=== PATIENT | female | born 1985 | race American Indian/Alaskan Native ===

== ENCOUNTER 2018-04-27 22:20 | Emergency (ER) | payer OTHER ==
[~2018-04-27] VITALS: Ht 157.5 cm; Wt 56.7 kg
[~2018-04-27 22:20] MED LIST: CLARITIN10 MG PO; CYMBALTA30 MG PO; DILAUDID4 MG PO; DOCUSATE SODIU100 MG PO; GABAPENTIN100 MG PO; GENTIAN VIOLET TOP; HYDROCODON-ACE1 EAC6 PO; IBUPROFEN600 MG PO; IBUPROFEN800 MG PO; IRON18 MG PO; KEFLEX500 MG PO; NAPROSYN500 MG PO; NORCO 5-325 TA1 EACH PO; PERCOCET 5-3251 EACH PO; PRENATAL CAPLE1 EACH PO; PROMETHAZINE HC25 M1 PO; PROZAC10 MG PO; SINGULAIR5 MG PO; TRAMADOL HCL50 MG PO; VICODIN 5-5001 EACH; VITAMIN C500 M1 PO; VITAMIN D5000 UNIT PO; XANAX1 MG PO; ZOLOFT100 MG PO
[2018-04-27] MEDS ORDERED: REMERON15 MG PO (22:30)
[2018-04-27] MEDS ORDERED: PAXIL20 MG PO (22:30)
[2018-04-27] MEDS ORDERED: TRAZODONE HCL50 MG PO (22:31)
--- NOTE | 2018-04-29 11:00 | EKG ---
[facility] [address] [place] [address] Signed Sinus tachycardia Possible Left atrial enlargement Borderline ECG No previous ECGs available Confirmed by SARA FITZGERALD MD ([id number]) on 04/29/2018 11:00:32 AM Electronically Signed By: SARA FITZGERALD MD 04/29/18 1100 PATIENT NAME: MEENU BROOKS Electrocardiogram DATE OF : 89 PHYSICIAN: SARA FITZGERALD MD REPORT #: [id number] REPORT IS CONFIDENTIAL AND NOT TO BE RELEASED WITHOUT AUTHORIZATION
== END 2018-04-28 00:24 | disposition home or self-care (01) ==
LOC: ED 22:20
DX: F11.23 Opioid dependence with withdrawal (principal); R79.89 Other specified abnormal findings of blood chemistry; E87.6 Hypokalemia; F17.200 Nicotine dependence, unspecified, uncomplicated; Z79.899 Other long term (current) drug therapy
CPT/HCPCS: 80053; 80176; 81001; 84703; 85025; 87077; 87088; 87186; 93005; 93010; 96360; 99284; G0480; J7030

== ENCOUNTER 2020-05-29 00:52 | Emergency (ER) | payer OTHER ==
[~2020-05-29] VITALS: Ht 162.6 cm; Wt 59.9 kg
[~2020-05-29 00:52] MED LIST changes: +METHADONE HCL10 MG PO; +PAXIL20 MG PO; +REMERON15 MG PO; +TRAZODONE HCL50 MG PO
--- OUTSIDE RECORDS SUMMARY | 2020-05-29 00:54 | XMS ---
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 Care History Medical/Surgical 07/06/2019 [facility] \T\middot;\T\nbsp; PATIENT IS A [employer] MEMBER. \T\middot;\T\nbsp; PLEASE REFER PATIENT TO [facility] FOR NON EMERGENT MEDICAL NEEDS. \T\middot;\ T\nbsp; [facility] CAN SEE PATIENTS SAME DAY FOR APTS IF PATIENT CALLS FIRST THING IN THE MORNING. E.D. VISIT COUNT (12 MO.) 2 [facility] TOTAL 2 NOTE: Visits indicate total known visits. ED/UCC VISIT TRACKING (12 MO.) 05/29/2020 00:53 [facility] [place] TYPE: Emergency COMPLAINT: - SKIN PROBLEM 07/05/2019 17:25 [facility] [place] TYPE: Emergency COMPLAINT: - SORE THROAT DIAGNOSES: - Acute pharyngitis, unspecified - Other terminal clerk (current) drug therapy - Syphilis, unspecified - Nicotine dependence, unspecified, uncomplicated INPATIENT VISIT TRACKING (12 MO.) No inpatient visits to display in this time frame [email or web address]
[2020-05-29] MEDS ORDERED: CLARITIN10 MG PO (01:17)
[2020-05-29] MEDS ORDERED: BACTRIM DS TAB1 EACH PO (01:22)
== END 2020-05-29 01:36 | disposition home or self-care (01) ==
LOC: ED 00:52
DX: L02.416 Cutaneous abscess of left lower limb (principal); L03.116 Cellulitis of left lower limb; F17.200 Nicotine dependence, unspecified, uncomplicated
CPT/HCPCS: 99282

== ENCOUNTER 2023-06-05 11:36 | Emergency (ER) | payer OTHER ==
[~2023-06-05] VITALS: Ht 162.6 cm; Wt 59.9 kg
[~2023-06-05 11:36] MED LIST changes: +BACTRIM DS TAB1 EACH PO
[2023-06-06 11:19] VITALS: BP 115/80
== END 2023-06-06 11:20 | disposition home or self-care (01) ==
LOC: ED 11:36
DX: F19.10 Other psychoactive substance abuse, uncomplicated (principal); F22 Delusional disorders; F17.200 Nicotine dependence, unspecified, uncomplicated
CPT/HCPCS: 36415; 80053; 81001; 84443; 84703; 85025; 99284; A9270-GY; G0480

== ENCOUNTER 2023-06-08 04:15 | Emergency (ER) | payer OTHER ==
[~2023-06-08] VITALS: Ht 162.6 cm; Wt 49.9 kg
--- OUTSIDE RECORDS SUMMARY | ~2023-06-08 | XMS | Continuity of Care Document ---
Demographics + + + | Address | [address] | | | [place] [address] | + + + | Preferred Language | Unknown | + + + | Marital Status | Never | + + + | Nondenominational Affiliation | Unknown | + + + | Race | or | + + + | Ethnic Group | Not or | + + + Author + + + | Author | [facility] | + + + | Organization | [facility] | + + + | Address | [address] | | | [place] [address] | + + + | Phone | | + + + Care Team Providers + + + + | Care Pharmacy Buyer Name | Role | Phone | + [...] + | 2016-09-18 00:00 | MMR | [facility] | + + + + | 2016-06-08 00:00 | Tdap | [facility] | + + + + Medications No information. Problems + + + + | date | description | facility | + + + + | 2014-10-22 00:00 | Shoulder pain | [facility] | + + + + | 2014-10-22 00:00 | Calcific bursitis of | [facility] | | | shoulder | | + + + + | 2014-10-22 00:00 | Strain of shoulder | [facility] | + + + + | 2014-11-21 00:00 | Postoperative pain | [facility] | + + + + | 2014-11-21 00:00 | Postoperative abdominal | [facility] | | | pain | | + + + + | 2016-02-18 00:00 | Pelvic pain affecting | [facility] | | | | | + + + + | 2016-05-14 00:00 | Encounter for medical | [facility] | | | screening examination | | + + + + | 2016-10-19 00:00 | Mastitis | [facility] | + + + + | 2018-04-28 00:00 | Hypokalemia | [facility] | + + + + | 2018-04-28 00:00 | Chronic narcotic | [facility] | | | dependence | | + + + + | 2018-04-28 00:00 | Drug withdrawal | [facility] | + + + + | 2018-04-28 00:00 | Elevated liver function | [facility] | | | tests | | + + + + | 2019-07-05 00:00 | Syphilis | [facility] | + + + + | 2019-07-05 00:00 | Pharyngitis | [facility] | + + + + | 2020-05-29 00:00 | Abscess | [facility] | + + + + | 2020-05-29 00:00 | Cellulitis | [facility] | + + + + | 2023-06-06 00:00 | Polysubstance abuse | [facility] | + + + + | 2023-06-06 00:00 | Delusions | [facility] | + + + + [...] d | | | + + + +---------+"
--- OUTSIDE RECORDS SUMMARY | ~2023-06-08 | XMS | Continuity of Care Document ---
Demographics + + + | Address | [address] | | | [place] [address] | + + + | Preferred Language | Unknown | + + + | Marital Status | Never | + + + | Yarsani Affiliation | Unknown | + + + | Race | or | + + + | Ethnic Group | Not or | + + + Author + + + | Author | [facility] | + + + | Organization | [facility] | + + + | Address | [address] | | | [place] [address] | + + + | Phone | | + + + Care Team Providers + + + + | Care Statistical Methods Professor Name | Role | Phone | + [...] + | 2016-09-18 00:00 | MMR | [facility] | + + + + | 2016-06-08 00:00 | Tdap | [facility] | + + + + Medications No information. Problems + + + + | date | description | facility | + + + + | 2014-10-22 00:00 | Shoulder pain | [facility] | + + + + | 2014-10-22 00:00 | Calcific bursitis of | [facility] | | | shoulder | | + + + + | 2014-10-22 00:00 | Strain of shoulder | [facility] | + + + + | 2014-11-21 00:00 | Postoperative pain | [facility] | + + + + | 2014-11-21 00:00 | Postoperative abdominal | [facility] | | | pain | | + + + + | 2016-02-18 00:00 | Pelvic pain affecting | [facility] | | | | | + + + + | 2016-05-14 00:00 | Encounter for medical | [facility] | | | screening examination | | + + + + | 2016-10-19 00:00 | Mastitis | [facility] | + + + + | 2018-04-28 00:00 | Hypokalemia | [facility] | + + + + | 2018-04-28 00:00 | Chronic narcotic | [facility] | | | dependence | | + + + + | 2018-04-28 00:00 | Drug withdrawal | [facility] | + + + + | 2018-04-28 00:00 | Elevated liver function | [facility] | | | tests | | + + + + | 2019-07-05 00:00 | Syphilis | [facility] | + + + + | 2019-07-05 00:00 | Pharyngitis | [facility] | + + + + | 2020-05-29 00:00 | Abscess | [facility] | + + + + | 2020-05-29 00:00 | Cellulitis | [facility] | + + + + | 2023-06-06 00:00 | Polysubstance abuse | [facility] | + + + + | 2023-06-06 00:00 | Delusions | [facility] | + + + + [...]
--- OUTSIDE RECORDS SUMMARY | 2023-06-08 04:25 | XMS ---
PreManage Notification: MEENU BROOKS Security X Ray Tech Events No recent Security Events currently on file CRITERIA MET - [facility] - 2 Visits in 30 Days CARE PROVIDERS -[place]- Dentist: Swing Saw Operator [place] PHONE: [phone] KELLIE BRAGG Physician Forest Aide 07/06/2019-Current PHONE: Unknown Sergio has no Care Guidelines for this patient. Care History Medical/Surgical 07/06/2019 [facility] - PATIENT IS [place] ELIGIBLE, \T\middot;\T\nbsp; PLEASE REFER PATIENT TO [facility] FOR NON EMERGENT MEDICAL NEEDS. \T\middot;\T\nbsp; [facility] CAN SEE PATIENTS SAME DAY FOR APTS IF PATIENT CALLS FIRST THING IN THE MORNING. E.D. VISIT COUNT (12 MO.) 2 [facility] TOTAL 2 NOTE: Visits indicate total known visits. ED/UCC VISIT TRACKING (12 MO.) 06/08/2023 04:16 [facility] [place] TYPE: Emergency COMPLAINT: - SOMETHING GOING ON IN HER BRAIN 06/05/2023 11:36 [facility] [place] TYPE: Emergency COMPLAINT: - MEDICAL CLEARANCE INPATIENT VISIT TRACKING (12 MO.) No inpatient visits to display in this time frame [email or web address]
[2023-06-08 06:02] VITALS: BP 105/61
[2023-06-09] MEDS ORDERED: MACROBID 100 M100 MG PO (05:08)
== END 2023-06-08 06:03 | disposition home or self-care (01) ==
LOC: ED 04:15
DX: R51.9 Headache, unspecified (principal); F17.200 Nicotine dependence, unspecified, uncomplicated
CPT/HCPCS: 70450; 99284 25; A9270

== ENCOUNTER 2023-06-09 04:21 | Emergency (ER) | payer OTHER ==
[~2023-06-09] VITALS: Ht 162.6 cm; Wt 52.0 kg
--- OUTSIDE RECORDS SUMMARY | ~2023-06-09 | XMS | Continuity of Care Document ---
Demographics + + + | Address | [address] | | | [place] [address] | + + + | Preferred Language | Unknown | + + + | Marital Status | Never | + + + | Mu-Ism Affiliation | Unknown | + + + | Race | or | + + + | Ethnic Group | Not or | + + + Author + + + | Author | [facility] | + + + | Organization | [facility] | + + + | Address | [address] | | | [place] [address] | + + + | Phone | | + + + Care Team Providers + + + + | Care Dairy Farmer Name | Role | Phone | + + + + Unavailable | Unavailable | + + + + Unavailable | Unavailable | + + + + Allergies and Intolerances + + + + + | date | description | facility | type | + + + + + | (no date) | No Known Allergies | [facility] | (unknown) | | | | | | + + + + + Encounters No information. Functional Status No information. Immunizations + + + + | date | description | facility | + + + + | 2016-09-18 00:00 | MMR | [facility] | + + + + | 2016-06-08 00:00 | Tdap | [facility] | + + + + Medications No information. Problems + + + + | date | description | facility | + + + + | 2014-10-22 00:00 | Shoulder pain | [facility] | + + + + | 2014-10-22 00:00 | Calcific bursitis of | [facility] | | | shoulder | | + + + + | 2014-10-22 00:00 | Strain of shoulder | [facility] | + + + + | 2014-11-21 00:00 | Postoperative pain | [facility] | + + + + | 2014-11-21 00:00 | Postoperative abdominal | [facility] | | | pain | | + + + + | 2016-02-18 00:00 | Pelvic pain affecting | [facility] | | | | | + + + + | 2016-05-14 00:00 | Encounter for medical | [facility] | | | screening examination | | + + + + | 2016-10-19 00:00 | Mastitis | [facility] | + + + + | 2018-04-28 00:00 | Hypokalemia | [facility] | + + + + | 2018-04-28 00:00 | Chronic narcotic | [facility] | | | dependence | | + + + + | 2018-04-28 00:00 | Drug withdrawal | [facility] | + + + + | 2018-04-28 00:00 | Elevated liver function | [facility] | | | tests | | + + + + | 2019-07-05 00:00 | Syphilis | [facility] | + + + + | 2019-07-05 00:00 | Pharyngitis | [facility] | + + + + | 2020-05-29 00:00 | Abscess | [facility] | + + + + | 2020-05-29 00:00 | Cellulitis | [facility] | + + + + | 2023-06-05 11:36 | NICOTINE DEPENDENCE, | [facility] | | | UNSPECIFIED, UNCOMPLICATED | | + + + + | 2023-06-05 11:36 | OTHER PSYCHOACTIVE | [facility] | | | SUBSTANCE ABUSE, | | | | UNCOMPLICATED | | + + + + | 2023-06-05 11:36 | Delusional disorders | [facility] | + + + + | 2023-06-06 00:00 | Polysubstance abuse | [facility] | + + + + | 2023-06-06 00:00 | Delusions | [facility] | + + + + | 2023-06-08 00:00 | Headache | [facility] | + + + + Procedures No information. Results/Labs No information. Social History No information. Vital Signs + + + +---------+ | date | measurement | value | units | + + + +---------+ | 2023-06-05 00:00 | BMI | 22.7 | kg/m2 | + + + +---------+ | 2023-06-05 00:00 | height_metric | 162.56 | cm | + + + +---------+ | 2023-06-05 00:00 | height_standard | 64 | in | + + + +---------+ | 2023-06-05 00:00 | weight_metric | 59.87 | kg | + + + +---------+ | 2023-06-05 00:00 | weight_standard | 131.99 | lb | + + + +---------+ | 2023-06-05 00:00 | weight_standard | 132 | lb | + + + +---------+ | 2023-06-06 00:00 | BP_diastolic | 80 | mmHg | + + + +---------+ | 2023-06-06 00:00 | BP_systolic | 115 | mmHg | + + + +---------+ | 2023-06-06 00:00 | heart_rate | 80 | /min | + + + +---------+ | 2023-06-06 00:00 | o2_saturation | 100 | % | + + + +---------+ | 2023-06-06 00:00 | respiration_rate | 16 | /min | + + + +---------+ | 2023-06-06 00:00 | temperature_metric | 36.67 | C | | | | | | + + + +---------+ | 2023-06-06 00:00 | | 98 | F | | | temperature_standar | | | | | d | | | + + + +---------+ | 2023-06-08 00:00 | BMI | 18.9 | kg/m2 | + + + +---------+ | 2023-06-08 00:00 | BP_diastolic | 61 | mmHg | + + + +---------+ | 2023-06-08 00:00 | BP_systolic | 105 | mmHg | + + + +---------+ | 2023-06-08 00:00 | heart_rate | 98 | /min | + + + +---------+ | 2023-06-08 00:00 | height_metric | 162.56 | cm | + + + +---------+ | 2023-06-08 00:00 | height_standard | 64 | in | + + + +---------+ | 2023-06-08 00:00 | o2_saturation | 100 | % | + + + +---------+ | 2023-06-08 00:00 | respiration_rate | 20 | /min | + + + +---------+ | 2023-06-08 00:00 | temperature_metric | 36.83 | C | | | | | | + + + +---------+ | 2023-06-08 00:00 | | 98.3 | F | | | temperature_standar | | | | | d | | | + + + +---------+ | 2023-06-08 00:00 | weight_metric | 49.9 | kg | + + + +---------+ | 2023-06-08 00:00 | weight_standard | 110.01 | lb | + + + +---------+"
--- OUTSIDE RECORDS SUMMARY | ~2023-06-09 | XMS | Continuity of Care Document ---
Demographics + + + | Address | [address] | | | [place] [address] | + + + | Preferred Language | Unknown | + + + | Marital Status | Never | + + + | Zoroastrianism Affiliation | Unknown | + + + | Race | or | + + + | Ethnic Group | Not or | + + + Author + + + | Author | [facility] | + + + | Organization | [facility] | + + + | Address | [address] | | | [place] [address] | + + + | Phone | | + + + Care Team Providers + + + + | Care Detention Deputy Name | Role | Phone | + [...] + | 2016-09-18 00:00 | MMR | [facility] | + + + + | 2016-06-08 00:00 | Tdap | [facility] | + + + + Medications No information. Problems + + + + | date | description | facility | + + + + | 2014-10-22 00:00 | Shoulder pain | [facility] | + + + + | 2014-10-22 00:00 | Calcific bursitis of | [facility] | | | shoulder | | + + + + | 2014-10-22 00:00 | Strain of shoulder | [facility] | + + + + | 2014-11-21 00:00 | Postoperative pain | [facility] | + + + + | 2014-11-21 00:00 | Postoperative abdominal | [facility] | | | pain | | + + + + | 2016-02-18 00:00 | Pelvic pain affecting | [facility] | | | | | + + + + | 2016-05-14 00:00 | Encounter for medical | [facility] | | | screening examination | | + + + + | 2016-10-19 00:00 | Mastitis | [facility] | + + + + | 2018-04-28 00:00 | Hypokalemia | [facility] | + + + + | 2018-04-28 00:00 | Chronic narcotic | [facility] | | | dependence | | + + + + | 2018-04-28 00:00 | Drug withdrawal | [facility] | + + + + | 2018-04-28 00:00 | Elevated liver function | [facility] | | | tests | | + + + + | 2019-07-05 00:00 | Syphilis | [facility] | + + + + | 2019-07-05 00:00 | Pharyngitis | [facility] | + + + + | 2020-05-29 00:00 | Abscess | [facility] | + + + + | 2020-05-29 00:00 | Cellulitis | [facility] | + + + + | 2023-06-05 [...] | 2023-06-06 00:00 | Polysubstance abuse | [facility] | + + + + | 2023-06-06 00:00 | Delusions | [facility] | + + + + | 2023-06-08 00:00 | Headache | [facility] | + + + + Procedures No [...]
--- OUTSIDE RECORDS SUMMARY | 2023-06-09 04:27 | XMS ---
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 Care History Medical/Surgical 07/06/2019 [facility] - PATIENT IS YELLOWHAWK ELIGIBLE, \T\middot;\T\nbsp; PLEASE REFER PATIENT TO [facility] FOR NON EMERGENT MEDICAL NEEDS. \T\middot;\T\nbsp; [facility] CAN SEE PATIENTS SAME DAY FOR APTS IF PATIENT CALLS FIRST THING IN THE MORNING. E.D. VISIT COUNT (12 MO.) 3 [facility] TOTAL 3 NOTE: Visits indicate total known visits. ED/UCC VISIT TRACKING (12 MO.) 06/09/2023 04:21 [facility] TYPE: Emergency COMPLAINT: - MEDICAL CLEARANCE 06/08/2023 04:16 [facility] [place] TYPE: Emergency COMPLAINT: - SOMETHING GOING ON IN HER BRAIN 06/05/2023 11:[address] [facility] [place] TYPE: Emergency COMPLAINT: - MEDICAL CLEARANCE DIAGNOSES: - Delusional disorders - Nicotine dependence, unspecified, uncomplicated - Other psychoactive substance abuse, uncomplicated INPATIENT VISIT TRACKING (12 MO.) No inpatient visits to display in this time frame [email or web address]
[2023-06-09] MEDS ORDERED: MACROBID 100 M100 MG PO (05:08)
[2023-06-09 05:18] VITALS: BP 109/80
== END 2023-06-09 05:21 | disposition home or self-care (01) ==
LOC: ED 04:21
DX: N39.0 Urinary tract infection, site not specified (principal); F19.10 Other psychoactive substance abuse, uncomplicated; F17.200 Nicotine dependence, unspecified, uncomplicated
CPT/HCPCS: 99283

== ENCOUNTER 2023-06-12 01:50 | Emergency (ER) | payer OTHER ==
[~2023-06-12] VITALS: Ht 162.6 cm; Wt 53.7 kg
--- OUTSIDE RECORDS SUMMARY | ~2023-06-12 | XMS | Continuity of Care Document ---
Demographics + + + | Address | [address] | | | [place] [address] | + + + | Preferred Language | Unknown | + + + | Marital Status | Never | + + + | Yazdanism Affiliation | Unknown | + + + | Race | or | + + + | Ethnic Group | Not or | + + + Author + + + | Author | [facility] | + + + | Organization | [facility] | + + + | Address | [address] | | | [place] [address] | + + + | Phone | | + + + Care Team Providers + + + + | Care Sound Editor Name | Role | Phone | + + + + Unavailable | Unavailable | + + + + Unavailable | Unavailable | + + + + Allergies and Intolerances + + + + + + | date | description | facility | reaction | severity | + + + + + + | (no date) | No Known | [facility] | (no reaction) | (no severity) | | | Allergies | | | | + + + + + + Encounters No information. Functional Status No information. Immunizations + + + + | date | description | facility | + + + + | 2016-09-18 00:00 | MMR | [facility] | + + + + | 2016-06-08 00:00 | Tdap | [facility] | + + + + Medications + + + + | date | description | facility | + + + + | 2023-06-09 00:00 | OXYCODONE | [facility] | | | HCL/ACETAMINOPHEN | | + + + + | 2023-06-09 00:00 | DOCUSATE SODIUM | [facility] | + + + + | 2023-06-09 00:00 | MONTELUKAST SODIUM | [facility] | + + + + | 2023-06-09 00:00 | IBUPROFEN | [facility] | + + + + | 2023-06-09 00:00 | LORATADINE | [facility] | + + + + | 2023-06-09 00:00 | PAROXETINE HCL | [facility] | + + + + | 2023-06-09 00:00 | SERTRALINE HCL | [facility] | + + + + | 2023-06-09 00:00 | MIRTAZAPINE | [facility] | + + + + | 2016-10-19 00:00 | CEPHALEXIN | [facility] | + + + + | 2023-06-09 00:00 | ALPRAZOLAM | [facility] | + + + + | 2023-06-09 00:00 | ASCORBIC ACID | [facility] | + + + + | 2023-06-09 00:00 | GENTIAN ONEL | [facility] | + + + + | 2023-06-09 00:00 | NITROFURANTOIN MONOHYD | [facility] | | | MACROCR | | + + + + | 2023-06-09 00:00 | TRAMADOL HCL | [facility] | + + + + | 2023-06-09 00:00 | TRAZODONE HCL | [facility] | + + + + | 2013-07-31 00:00 | HYDROCODONE | [facility] | | | BIT/ACETAMINOPHEN | | + + + + | 2023-06-09 00:00 | CHOLECALCIFEROL (VITAMIN | [facility] | | | D3) | | + + + + | 2023-06-09 00:00 | HYDROMORPHONE HCL | [facility] | + + + + | 2023-06-09 00:00 | PROMETHAZINE HCL | [facility] | + + + + Problems + + + + | date | description | facility | + + + + | 2014-10-22 00:00 | Shoulder pain | [facility] | + + + + | 2014-10-22 00:00 | Calcific bursitis of | [facility] | | | shoulder | | + + + + | 2014-10-22 00:00 | Strain of shoulder | [facility] | + + + + | 2014-11-21 00:00 | Postoperative pain | [facility] | + + + + | 2014-11-21 00:00 | Postoperative abdominal | [facility] | | | pain | | + + + + | 2016-02-18 00:00 | Pelvic pain affecting | [facility] | | | | | + + + + | 2016-05-14 00:00 | Encounter for medical | [facility] | | | screening examination | | + + + + | 2016-10-19 00:00 | Mastitis | [facility] | + + + + | 2018-04-28 00:00 | Hypokalemia | [facility] | + + + + | 2018-04-28 00:00 | Chronic narcotic | [facility] | | | dependence | | + + + + | 2018-04-28 00:00 | Drug withdrawal | [facility] | + + + + | 2018-04-28 00:00 | Elevated liver function | [facility] | | | tests | | + + + + | 2019-07-05 00:00 | Syphilis | [facility] | + + + + | 2019-07-05 00:00 | Pharyngitis | [facility] | + + + + | 2020-05-29 00:00 | Abscess | [facility] | + + + + | 2020-05-29 00:00 | Cellulitis | [facility] | + + + + | 2023-06-05 11:36 | NICOTINE DEPENDENCE, | [facility] | | | UNSPECIFIED, UNCOMPLICATED | | + + + + | 2023-06-05 11:36 | OTHER PSYCHOACTIVE | [facility] | | | SUBSTANCE ABUSE, | | | | UNCOMPLICATED | | + + + + | 2023-06-05 11:36 | Delusional disorders | [facility] | + + + + | 2023-06-06 00:00 | Polysubstance abuse | [facility] | + + + + | 2023-06-06 00:00 | Delusions | [facility] | + + + + | 2023-06-08 00:00 | Headache | [facility] | + + + + | 2023-06-08 04:16 | NICOTINE DEPENDENCE, | [facility] | | | UNSPECIFIED, UNCOMPLICATED | | + + + + | 2023-06-09 00:00 | Substance abuse | [facility] | + + + + | 2023-06-09 00:00 | Urinary tract infection | [facility] | + + + + | 2023-06-09 04:21 | NICOTINE DEPENDENCE, | [facility] | | | UNSPECIFIED, UNCOMPLICATED | | + + + + | 2023-06-09 04:21 | OTHER PSYCHOACTIVE | [facility] | | | SUBSTANCE ABUSE, | | | | UNCOMPLICATED | | + + + + | 2023-06-09 04:21 | URINARY TRACT INFECTION, | [facility] | | | SITE NOT SPECIFIED | | + + + + Procedures No information. Results/Labs +--------+--------+ +---------+--------+---------+ | test | date | facility | value | unit | notes | +--------+--------+ +---------+--------+---------+ + + | Result panel 1 | + + + + + +--------+ + + | | 2023-06-05 | [facility] | 11.3 | (missing) | (missing) | | (unavailable | [facility] | | | + + + +--------+ + + + + | Result panel 2 | + + + + + +--------+ + + | | 2023-06-05 | [facility] | 68.1 | (missing) | (missing) | | (unavailable | [facility] | | | + + + +--------+ + + + + | Result panel 3 | + + + + + +--------+ + + | | 2023-06-05 | [facility] | 20.4 | (missing) | (missing) | | (unavailable | [facility] | | | + + + +--------+ + + + + | Result panel 4 | + + + + + +------+---------+ + | | 2023-06-05 | [facility] | 84 | mg/dL | (missing) | | (unavailable | [facility] | | | + + + +------+---------+ + + + | Result panel 5 | + + + + + +------+---------+ + | | 2023-06-05 | [facility] | 12 | mg/dL | (missing) | | (unavailable | [facility] | | | + + + +------+---------+ + + + | Result panel 6 | + + + + + +--------+---------+ + | | 2023-06-05 | [facility] | 1.02 | mg/dL | (missing) | | (unavailable | [facility] | | | + + + +--------+---------+ + + + | Result panel 7 | + + + + + +------+ + + | | 2023-06-05 | [facility] | 73 | (missing) | (missing) | | (unavailable | [facility] | | | + + + +------+ + + + + | Result panel 8 | + + + + + +---------+ + + | | 2023-06-05 | [facility] | 11.76 | (missing) | (missing) | | (unavailable | [facility] | | | + + + +---------+ + + + + | Result panel 9 | + + + + + +-------+ + + | | 2023-06-05 | [facility] | 143 | (missing) | (missing) | | (unavailable | [facility] | | | + + + +-------+ + + + + | Result panel 10 | + + + + + +-------+ + + | | 2023-06-05 | [facility] | 3.0 | (missing) | (missing) | | (unavailable | [facility] | | | + + + +-------+ + + + + | Result panel 11 | + + + + + +-------+ + + | | 2023-06-05 | [facility] | 107 | (missing) | (missing) | | (unavailable | [facility] | | | + + + +-------+ + + + + | Result panel 12 | + + + + + +------+ + + | | 2023-06-05 | [facility] | 24 | (missing) | (missing) | | (unavailable | [facility] | | | + + + +------+ + + + + | Result panel 13 | + + + + + +--------+ + + | | 2023-06-05 | [facility] | 15.0 | (missing) | (missing) | | (unavailable | [facility] | | | + + + +--------+ + + + + | Result panel 14 | + + + + + +-------+ + + | | 2023-06-05 | [facility] | 9.7 | (missing) | (missing) | | (unavailable | [facility] | | | + + + +-------+ + + + + | Result panel 15 | + + + + + +-------+---------+ + | | 2023-06-05 | [facility] | 9.1 | mg/dL | (missing) | | (unavailable | [facility] | | | + + + +-------+---------+ + + + | Result panel 16 | + + + + + +-------+ + + | | 2023-06-05 | [facility] | 7.8 | (missing) | (missing) | | (unavailable | [facility] | | | + + + +-------+ + + + + | Result panel 17 | + + + + + +-------+ + + | | 2023-06-05 | [facility] | 3.8 | (missing) | (missing) | | (unavailable | [facility] | | | + + + +-------+ + + + + | Result panel 18 | + + + + + +-------+ + + | | 2023-06-05 | [facility] | 4.0 | (missing) | (missing) | | (unavailable | [facility] | | | + + + +-------+ + + + + | Result panel 19 | + + + + + +--------+ + + | | 2023-06-05 | [facility] | 0.95 | (missing) | (missing) | | (unavailable | [facility] | | | + + + +--------+ + + + + | Result panel 20 | + + + + + +-------+ + + | | 2023-06-05 | [facility] | 0.4 | (missing) | (missing) | | (unavailable | [facility] | | | + + + +-------+ + + + + | Result panel 21 | + + + + + +------+ + + | | 2023-06-05 | [facility] | 26 | (missing) | (missing) | | (unavailable | [facility] | | | + + + +------+ + + + + | Result panel 22 | + + + + + +------+ + + | | 2023-06-05 | [facility] | 41 | (missing) | (missing) | | (unavailable | [facility] | | | + + + +------+ + + + + | Result panel 23 | + + + + + +------+ + + | | 2023-06-05 | [facility] | 67 | (missing) | (missing) | | (unavailable | [facility] | | | + + + +------+ + + + + | Result panel 24 | + + + + + +---------+ + + | | 2023-06-05 | [facility] | 0.336 | (missing) | (missing) | | (unavailable | [facility] | | | + + + +---------+ + + + + | Result panel 25 | + + + + + +-------+ + + | | 2023-06-05 | [facility] | 1.2 | (missing) | (missing) | | (unavailable | [facility] | | | + + + +-------+ + + + + | Result panel 26 | + + + + + + + + + | | 2023-06-05 | [facility] | NEGATIVE | (missing) | (missing) | | (unavailable | [facility] | | | + + + + + + + + + | Result panel 27 | + + + + + +-----+ + + | | 2023-06-05 | [facility] | 0 | (missing) | (missing) | | (unavailable | [facility] | | | + + + +-----+ + + + + | Result panel 28 | + + + + + +------+ + + | | 2023-06-05 | [facility] | // | (missing) | (missing) | | (unavailable | [facility] | | | + + + +------+ + + + + | Result panel 29 | + + + + + +-------+---------+ + | | 2023-06-05 | [facility] | 3.2 | mg/dL | (missing) | | (unavailable | [facility] | | | + + + +-------+---------+ + + + | Result panel 30 | + + + + + +------+ + + | | 2023-06-05 | [facility] | // | (missing) | (missing) | | (unavailable | [facility] | | | + + + +------+ + + + + | Result panel 31 | + + + + + +------+ + + | | 2023-06-05 | [facility] | <3 | (missing) | (missing) | | (unavailable | [facility] | | | + + + +------+ + + + + | Result panel 32 | + + + + + +-------+ + + | | 2023-06-05 | [facility] | 0.6 | (missing) | (missing) | | (unavailable | [facility] | | | + + + +-------+ + + + + | Result panel 33 | + + + + + +--------+ + + | | 2023-06-05 | [facility] | 11.3 | (missing) | (missing) | | (unavailable | [facility] | | | + + + +--------+ + + + + | Result panel 34 | + + + + + +--------+ + + | | 2023-06-05 | [facility] | 4.39 | (missing) | (missing) | | (unavailable | [facility] | | | + + + +--------+ + + + + | Result panel 35 | + + + + + +--------+ + + | | 2023-06-05 | [facility] | 12.1 | (missing) | (missing) | | (unavailable | [facility] | | | + + + +--------+ + + + + | Result panel 36 | + + + + + +--------+ + + | | 2023-06-05 | [facility] | 36.0 | (missing) | (missing) | | (unavailable | [facility] | | | + + + +--------+ + + + + | Result panel 37 | + + + + + +--------+ + + | | 2023-06-05 | [facility] | 82.1 | (missing) | (missing) | | (unavailable | [facility] | | | + + + +--------+ + + + + | Result panel 38 | + + + + + +--------+ + + | | 2023-06-05 | [facility] | 27.6 | (missing) | (missing) | | (unavailable | [facility] | | | + + + +--------+ + + + + | Result panel 39 | + + + + + +--------+ + + | | 2023-06-05 | [facility] | 33.7 | (missing) | (missing) | | (unavailable | [facility] | | | + + + +--------+ + + + + | Result panel 40 | + + + + + +--------+ + + | | 2023-06-05 | [facility] | 13.5 | (missing) | (missing) | | (unavailable | [facility] | | | + + + +--------+ + + + + | Result panel 41 | + + + + + +-------+ + + | | 2023-06-05 | [facility] | 239 | (missing) | (missing) | | (unavailable | [facility] | | | + + + +-------+ + + + + | Result panel 42 | + + + + + +--------+ + + | | 2023-06-05 | [facility] | 68.1 | (missing) | (missing) | | (unavailable | [facility] | | | + + + +--------+ + + + + | Result panel 43 | + + + + + +--------+ + + | | 2023-06-05 | [facility] | 20.4 | (missing) | (missing) | | (unavailable | [facility] | | | + + + +--------+ + + + + | Result panel 44 | + + + + + +-------+ + + | | 2023-06-05 | [facility] | 9.7 | (missing) | (missing) | | (unavailable | [facility] | | | + + + +-------+ + + + + | Result panel 45 | + + + + + +-------+ + + | | 2023-06-05 | [facility] | 1.2 | (missing) | (missing) | | (unavailable | [facility] | | | + + + +-------+ + + + + | Result panel 46 | + + + + + +-------+ + + | | 2023-06-05 | [facility] | 0.6 | (missing) | (missing) | | (unavailable | [facility] | | | + + + +-------+ + + + + | Result panel 47 | + + + + + +------+---------+ + | | 2023-06-05 | [facility] | 84 | mg/dL | (missing) | | (unavailable | [facility] | | | + + + +------+---------+ + + + | Result panel 48 | + + + + + +------+---------+ + | | 2023-06-05 | [facility] | 12 | mg/dL | (missing) | | (unavailable | [facility] | | | + + + +------+---------+ + + + | Result panel 49 | + + + + + +--------+---------+ + | | 2023-06-05 | [facility] | 1.02 | mg/dL | (missing) | | (unavailable | [facility] | | | + + + +--------+---------+ + + + | Result panel 50 | + + + + + +------+ + + | | 2023-06-05 | [facility] | 73 | (missing) | (missing) | | (unavailable | [facility] | | | + + + +------+ + + + + | Result panel 51 | + + + + + +---------+ + + | | 2023-06-05 | [facility] | 11.76 | (missing) | (missing) | | (unavailable | [facility] | | | + + + +---------+ + + + + | Result panel 52 | + + + + + +-------+ + + | | 2023-06-05 | [facility] | 143 | (missing) | (missing) | | (unavailable | [facility] | | | + + + +-------+ + + + + | Result panel 53 | + + + + + +-------+ + + | | 2023-06-05 | [facility] | 3.0 | (missing) | (missing) | | (unavailable | [facility] | | | + + + +-------+ + + + + | Result panel 54 | + + + + + +-------+ + + | | 2023-06-05 | [facility] | 107 | (missing) | (missing) | | (unavailable | [facility] | | | + + + +-------+ + + + + | Result panel 55 | + + + + + +------+ + + | | 2023-06-05 | [facility] | 24 | (missing) | (missing) | | (unavailable | [facility] | | | + + + +------+ + + + + | Result panel 56 | + + + + + +--------+ + + | | 2023-06-05 | [facility] | 15.0 | (missing) | (missing) | | (unavailable | [facility] | | | + + + +--------+ + + + + | Result panel 57 | + + + + + +-------+---------+ + | | 2023-06-05 | [facility] | 9.1 | mg/dL | (missing) | | (unavailable | [facility] | | | + + + +-------+---------+ + + + | Result panel 58 | + + + + + +-------+ + + | | 2023-06-05 | [facility] | 7.8 | (missing) | (missing) | | (unavailable | [facility] | | | + + + +-------+ + + + + | Result panel 59 | + + + + + +-------+ + + | | 2023-06-05 | [facility] | 3.8 | (missing) | (missing) | | (unavailable | [facility] | | | + + + +-------+ + + + + | Result panel 60 | + + + + + +-------+ + + | | 2023-06-05 | [facility] | 4.0 | (missing) | (missing) | | (unavailable | [facility] | | | + + + +-------+ + + + + | Result panel 61 | + + + + + +--------+ + + | | 2023-06-05 | [facility] | 0.95 | (missing) | (missing) | | (unavailable | [facility] | | | + + + +--------+ + + + + | Result panel 62 | + + + + + +-------+ + + | | 2023-06-05 | [facility] | 0.4 | (missing) | (missing) | | (unavailable | [facility] | | | + + + +-------+ + + + + | Result panel 63 | + + + + + +--------+ + + | | 2023-06-05 | [facility] | 4.39 | (missing) | (missing) | | (unavailable | [facility] | | | + + + +--------+ + + + + | Result panel 64 | + + + + + +------+ + + | | 2023-06-05 | [facility] | 26 | (missing) | (missing) | | (unavailable | [facility] | | | + + + +------+ + + + + | Result panel 65 | + + + + + +------+ + + | | 2023-06-05 | [facility] | 41 | (missing) | (missing) | | (unavailable | [facility] | | | + + + +------+ + + + + | Result panel 66 | + + + + + +------+ + + | | 2023-06-05 | [facility] | 67 | (missing) | (missing) | | (unavailable | [facility] | | | + + + +------+ + + + + | Result panel 67 | + + + + + +---------+ + + | | 2023-06-05 | [facility] | 0.336 | (missing) | (missing) | | (unavailable | [facility] | | | + + + +---------+ + + + + | Result panel 68 | + + + + + + + + + | | 2023-06-05 | [facility] | NEGATIVE | (missing) | (missing) | | (unavailable | [facility] | | | + + + + + + + + + | Result panel 69 | + + + + + +-----+ + + | | 2023-06-05 | [facility] | 0 | (missing) | (missing) | | (unavailable | [facility] | | | + + + +-----+ + + + + | Result panel 70 | + + + + + +------+ + + | | 2023-06-05 | [facility] | // | (missing) | (missing) | | (unavailable | [facility] | | | + + + +------+ + + + + | Result panel 71 | + + + + + +-------+---------+ + | | 2023-06-05 | [facility] | 3.2 | mg/dL | (missing) | | (unavailable | [facility] | | | + + + +-------+---------+ + + + | Result panel 72 | + + + + + +------+ + + | | 2023-06-05 | [facility] | // | (missing) | (missing) | | (unavailable | [facility] | | | + + + +------+ + + + + | Result panel 73 | + + + + + +------+ + + | | 2023-06-05 | [facility] | <3 | (missing) | (missing) | | (unavailable | [facility] | | | + + + +------+ + + + + | Result panel 74 | + + + + + +--------+ + + | | 2023-06-05 | [facility] | 12.1 | (missing) | (missing) | | (unavailable | [facility] | | | + + + +--------+ + + + + | Result panel 75 | + + + + + +------+---------+ + | | 2023-06-05 | [facility] | 84 | mg/dL | (missing) | | (unavailable | [facility] | | | + + + +------+---------+ + + + | Result panel 76 | + + + + + +------+---------+ + | | 2023-06-05 | [facility] | 12 | mg/dL | (missing) | | (unavailable | [facility] | | | + + + +------+---------+ + + + | Result panel 77 | + + + + + +--------+---------+ + | | 2023-06-05 | [facility] | 1.02 | mg/dL | (missing) | | (unavailable [facility] | | | + + + +--------+---------+ + + + | Result panel 78 | + + + + + +------+ + + | | 2023-06-05 | [facility] | 73 | (missing) | (missing) | | (unavailable | [facility] | | | + + + +------+ + + + + | Result panel 79 | + + + + + +--------+ + + | | 2023-06-05 | [facility] | 36.0 | (missing) | (missing) | | (unavailable | [facility] | | | + + + +--------+ + + + + | Result panel 80 | + + + + + +---------+ + + | | 2023-06-05 | [facility] | 11.76 | (missing) | (missing) | | (unavailable | [facility] | | | + + + +---------+ + + + + | Result panel 81 | + + + + + +-------+ + + | | 2023-06-05 | [facility] | 143 | (missing) | (missing) | | (unavailable | [facility] | | | + + + +-------+ + + + + | Result panel 82 | + + + + + +-------+ + + | | 2023-06-05 | [facility] | 3.0 | (missing) | (missing) | | (unavailable | [facility] | | | + + + +-------+ + + + + | Result panel 83 | + + + + + +-------+ + + | | 2023-06-05 | [facility] | 107 | (missing) | (missing) | | (unavailable | [facility] | | | + + + +-------+ + + + + | Result panel 84 | + + + + + +------+ + + | | 2023-06-05 | [facility] | 24 | (missing) | (missing) | | (unavailable | 12:35:07 [facility] | | | | + + + +------+ + + + + | Result panel 85 | + + + + + +--------+ + + | | 2023-06-05 | [facility] | 15.0 | (missing) | (missing) | | (unavailable | 12:35:07 [facility] | | | | + + + +--------+ + + + + | Result panel 86 | + + + + + +-------+---------+ + | | 2023-06-05 | [facility] | 9.1 | mg/dL | (missing) | | (unavailable | 12:35:07 [facility] | | | | + + + +-------+---------+ + + + | Result panel 87 | + + + + + +-------+ + + | | 2023-06-05 | [facility] | 7.8 | (missing) | (missing) | | (unavailable | 12:35:07 [facility] | | | | + + + +-------+ + + + + | Result panel 88 | + + + + + +-------+ + + | | 2023-06-05 | [facility] | 3.8 | (missing) | (missing) | | (unavailable | 12:35:07 [facility] | | | | + + + +-------+ + + + + | Result panel 89 | + + + + + +-------+ + + | | 2023-06-05 | [facility] | 4.0 | (missing) | (missing) | | (unavailable | 12:35:07 [facility] | | | | + + + +-------+ + + + + | Result panel 90 | + + + + + +--------+ + + | | 2023-06-05 | [facility] | 82.1 | (missing) | (missing) | | (unavailable | 12:35:07 [facility] | | | | + + + +--------+ + + + + | Result panel 91 | + + + + + +--------+ + + | | 2023-06-05 | [facility] | 0.95 | (missing) | (missing) | | (unavailable | 12:35:07 [facility] | | | | + + + +--------+ + + + + | Result panel 92 | + + + + + +-------+ + + | | 2023-06-05 | [facility] | 0.4 | (missing) | (missing) | | (unavailable | 12:35:07 [facility] | | | | + + + +-------+ + + + + | Result panel 93 | + + + + + +------+ + + | | 2023-06-05 | [facility] | 26 | (missing) | (missing) | | (unavailable | 12:35:07 [facility] | | | | + + + +------+ + + + + | Result panel 94 | + + + + + +------+ + + | | 2023-06-05 | [facility] | 41 | (missing) | (missing) | | (unavailable | 12:35:07 [facility] | | | | + + + +------+ + + + + | Result panel 95 | + + + + + +------+ + + | | 2023-06-05 | [facility] | 67 | (missing) | (missing) | | (unavailable | 12:35:07 [facility] | | | | + + + +------+ + + + + | Result panel 96 | + + + + + +---------+ + + | | 2023-06-05 | [facility] | 0.336 | (missing) | (missing) | | (unavailable | 12:35:07 [facility] | | | | + + + +---------+ + + + + | Result panel 97 | + + + + + + + + + | | 2023-06-05 | [facility] | NEGATIVE | (missing) | (missing) | | (unavailable | 12:35:07 | [facility] | | [facility] | | | | + + + + + + + + + | Result panel 98 | + + + + + +-----+ + + | | 2023-06-05 | [facility] | 0 | (missing) | (missing) | | (unavailable | 12[facility]35:07 [facility] | | | | + + + +-----+ + + + + | Result panel 99 | + + + + + +------+ + + | | 2023-06-05 | [facility] | // | (missing) | (missing) | | (unavailable | [facility]07 [facility] | | | | + + + +------+ + + + + | Result panel 100 | + + + + + +-------+---------+ + | | 2023-06-05 | [facility] | 3.2 | mg/dL | (missing) | | (unavailable | [facility]07 [facility] | | | | + + + +-------+---------+ + + + | Result panel 101 | + + + + + +--------+ + + | | 2023-06-05 | [facility] | 27.6 | (missing) | (missing) | | (unavailable | [facility]07 [facility] | | | | + + + +--------+ + + + + | Result panel 102 | + + + + + +------+ + + | | 2023-06-05 | [facility] | // | (missing) | (missing) | | (unavailable | [facility] | | | | + + + +------+ + + + + | Result panel 103 | + + + + + +------+ + + | | 2023-06-05 | [facility] | <3 | (missing) | (missing) | | (unavailable | [facility] | | | + + + +------+ + + + + | Result panel 104 | + + + + + +--------+ + + | | 2023-06-05 | [facility] | 33.7 | (missing) | (missing) | | (unavailable | [facility]07 [facility] | | | + + + +--------+ + + + + | Result panel 105 | + + + + + +--------+ + + | | 2023-06-05 | [facility] | 11.3 | (missing) | (missing) | | (unavailable | [facility]07 [facility] | | | + + + +--------+ + + + + | Result panel 106 | + + + + + +--------+ + + | | 2023-06-05 | [facility] | 4.39 | (missing) | (missing) | | (unavailable | [facility]07 [facility] | | | + + + +--------+ + + + + | Result panel 107 | + + + + + +--------+ + + | | 2023-06-05 | [facility] | 12.1 | (missing) | (missing) | | (unavailable | [facility] | | | + + + +--------+ + + + + | Result panel 108 | + + + + + +--------+ + + | | 2023-06-05 | [facility] | 36.0 | (missing) | (missing) | | (unavailable | [facility]07 [facility] | | | + + + +--------+ + + + + | Result panel 109 | + + + + + +--------+ + + | | 2023-06-05 | [facility] | 82.1 | (missing) | (missing) | | (unavailable | [facility]07 [facility] | | | | + + + +--------+ + + + + | Result panel 110 | + + + + + +--------+ + + | | 2023-06-05 | [facility] | 13.5 | (missing) | (missing) | | (unavailable | [facility]07 [facility] | | | | + + + +--------+ + + + + | Result panel 111 | + + + + + +--------+ + + | | 2023-06-05 | [facility] | 27.6 | (missing) | (missing) | | (unavailable | [facility]07 [facility] | | | | + + + +--------+ + + + + | Result panel 112 | + + + + + +--------+ + + | | 2023-06-05 | [facility] | 33.7 | (missing) | (missing) | | (unavailable | [facility]07 [facility] | | | | + + + +--------+ + + + + | Result panel 113 | + + + + + +--------+ + + | | 2023-06-05 | [facility] | 13.5 | (missing) | (missing) | | (unavailable | [facility]07 [facility] | | | | + + + +--------+ + + + + | Result panel 114 | + + + + + +-------+ + + | | 2023-06-05 | [facility] | 239 | (missing) | (missing) | | (unavailable | [facility]07 [facility] | | | | + + + +-------+ + + + + | Result panel 115 | + + + + + +--------+ + + | | 2023-06-05 | [facility] | 68.1 | (missing) | (missing) | | (unavailable | [facility]07 [facility] | | | | + + + +--------+ + + + + | Result panel 116 | + + + + + +--------+ + + | | 2023-06-05 | [facility] | 20.4 | (missing) | (missing) | | (unavailable | [facility]07 [facility] | | | | + + + +--------+ + + + + | Result panel 117 | + + + + + +-------+ + + | | 2023-06-05 | [facility] | 9.7 | (missing) | (missing) | | (unavailable | [facility]07 [facility] | | | + + + +-------+ + + + + | Result panel 118 | + + + + + +-------+ + + | | 2023-06-05 | [facility] | 1.2 | (missing) | (missing) | | (unavailable | [facility]:07 [facility] | | | | + + + +-------+ + + + + | Result panel 119 | + + + + + +-------+ + + | | 2023-06-05 | [facility] | 0.6 | (missing) | (missing) | | (unavailable | [facility]07 [facility] | | | | + + + +-------+ + + + + | Result panel 120 | + + + + + +-------+ + + | | 2023-06-05 | [facility] | 239 | (missing) | (missing) | | (unavailable | [facility]:07 [facility] | | | | + + + +-------+ + + + + | Result panel 121 | + + + + + + + + + | | 2023-06-05 | [facility] | NEGATIVE | (missing) | (missing) | | (unavailable | [facility]16:07 [facility] | | | | + + + + + + + + + | Result panel 122 | + + + + + +-------+ + + | | 2023-06-05 | [facility] | 0-1 | (missing) | (missing) | | (unavailable | [facility] | | | | + + + +-------+ + + + + | Result panel 123 | + + + + + +-------+ + + | | 2023-06-05 | [facility] | 4-6 | (missing) | (missing) | | (unavailable | [facility]07 [facility] | | | | + + + +-------+ + + + + | Result panel 124 | + + + + + + + + + | | 2023-06-05 | [facility] | SQUAMOUS 2+ | (missing) | (missing) | | (unavailable | [facility]:07 [facility] | | | | + + + + + + + + + | Result panel 125 | + + + + + + + + + | | 2023-06-05 | [facility] | | (missing) | (missing) | | (unavailable | [facility]16:07 | [facility] | 1+ | | | + + + + + + + + + | Result panel 126 | + + + + + + + + + | | 2023-06-05 | [facility] | NONE SEEN | (missing) | (missing) | | (unavailable | [facility]16:07 [facility] | | | | + + + + + + + + + | Result panel 127 | + + + + + +------+ + + | | 2023-06-05 | [facility] | 3+ | (missing) | (missing) | | (unavailable | [facility]16:07 [facility] | | | | + + + +------+ + + + + | Result panel 128 | + + + + + + + + + | | 2023-06-05 | [facility] | NONE SEEN | (missing) | (missing) | | (unavailable | [facility]16:07 [facility] | | | | + + + + + + + + + | Result panel 129 | + + + + + +------+ + + | | 2023-06-05 | [facility] | No | (missing) | (missing) | | (unavailable | [facility]16:07 [facility] | | | | + + + +------+ + + + + | Result panel 130 | + + + + + + + + + | | 2023-06-05 | [facility] | CLEAN CATCH | (missing) | (missing) | | (unavailable | [facility]16:07 [facility] | | | | + + + + + + + + + | Result panel 131 | + + + + + + + + + | | 2023-06-05 | [facility] | POSITIVE | (missing) | (missing) | | (unavailable | [facility]16:07 [facility] | | | | + + + + + + + + + | Result panel 132 | + + + + + + + + + | | 2023-06-05 | [facility] | POSITIVE | (missing) | (missing) | | (unavailable | [facility]16:07 [facility] | | | | + + + + + + + + + | Result panel 133 | + + + + + + + + + | | 2023-06-05 | [facility] | NEGATIVE | (missing) | (missing) | | (unavailable | [facility]16:07 [facility] | | | | + + + + + + + + + | Result panel 134 | + + + + + + + + + | | 2023-06-05 | [facility] | POSITIVE | (missing) | (missing) | | (unavailable | [facility]16:07 [facility] | | | | + + + + + + + + + | Result panel 135 | + + + + + + + + + | | 2023-06-05 | [facility] | POSITIVE | (missing) | (missing) | | (unavailable | [facility]16:07 [facility] | | | | + + + + + + + + + | Result panel 136 | + + + + + + + + + | | 2023-06-05 | [facility] | NEGATIVE | (missing) | (missing) | | (unavailable | [facility]:07 [facility] | | | | + + + + + + + + + | Result panel 137 | + + + + + + + + + | | 2023-06-05 | [facility] | NEGATIVE | (missing) | (missing) | | (unavailable | [facility]:07 [facility] | | | | + + + + + + + + + | Result panel 138 | + + + + + + + + + | | 2023-06-05 | [facility] | NEGATIVE | (missing) | (missing) | | (unavailable | [facility]16:07 [facility] | | | | + + + + + + + + + | Result panel 139 | + + + + + + + + + | | 2023-06-05 | [facility] | NEGATIVE | (missing) | (missing) | | (unavailable | [facility]16:07 [facility] | | | | + + + + + + + + + | Result panel 140 | + + + + + + + + + | | 2023-06-05 | [facility] | POSITIVE | (missing) | (missing) | | (unavailable | [facility]16:07 [facility] | | | | + + + + + + + + + | Result panel 141 | + + + + + + + + + | | 2023-06-05 | [facility] | NEGATIVE | (missing) | (missing) | | (unavailable | [facility]16:07 [facility] | | | | + + + + + + + + + | Result panel 142 | + + + + + + + + + | | 2023-06-05 | [facility] | POSITIVE | (missing) | (missing) | | (unavailable | [facility]16:07 [facility] | | | | + + + + + + + + + | Result panel 143 | + + + + + + + + + | | 2023-06-05 | [facility] | NEGATIVE | (missing) | (missing) | | (unavailable | [facility]16:07 [facility] | | | | + + + + + + + + + | Result panel 144 | + + + + + + + + + | | 2023-06-05 | [facility] | YELLOW | (missing) | (missing) | | (unavailable | [facility]:16:07 | [facility] | | | | + + + + + + + + + | Result panel 145 | + + + + + +---------+ + + | | 2023-06-05 | [facility] | CLEAR | (missing) | (missing) | | (unavailable | [facility]16:07 [facility] | | | | + + + +---------+ + + + + | Result panel 146 | + + + + + + + + + | | 2023-06-05 | [facility] | YELLOW | (missing) | (missing) | | (unavailable | [facility]16:07 [facility] | | | | + + + + + + + + + | Result panel 147 | + + + + + +---------+ + + | | 2023-06-05 | [facility] | CLEAR | (missing) | (missing) | | (unavailable | [facility]16:07 [facility] | | | | + + + +---------+ + + + + | Result panel 148 | + + + + + + + + + | | 2023-06-05 | [facility] | NEGATIVE | (missing) | (missing) | | (unavailable | [facility]16:07 [facility] | | | | + + + + + + + + + | Result panel 149 | + + + + + + + + + | | 2023-06-05 | [facility] | POSITIVE | (missing) | (missing) | | (unavailable | [facility]16:07 [facility] | | | | + + + + + + + + + | Result panel 150 | + + + + + +---------+ + + | | 2023-06-05 | [facility] | SMALL | (missing) | (missing) | | (unavailable | [facility]16:07 [facility] | | | | + + + +---------+ + + + + | Result panel 151 | + + + + + + + + + | | 2023-06-05 | [facility] | >=1.030 | (missing) | (missing) | | (unavailable | 16:: | [facility] | | | | + + + + + + + + + | Result panel 152 | + + + + + + + + + | | 2023-06-05 | [facility] | TRACE-I | (missing) | (missing) | | (unavailable | 16: [facility] | | | | + + + + + + + + + | Result panel 153 | + + + + + + + + + | | 2023-06-05 | [facility] | NEGATIVE | (missing) | (missing) | | (unavailable | [facility]16:07 [facility] | | | | + + + + + + + + + | Result panel 154 | + + + + + +-------+ + + | | 2023-06-05 | [facility] | 6.0 | (missing) | (missing) | | (unavailable | [facility]16:07 [facility] | | | | + + + +-------+ + + + + | Result panel 155 | + + + + + + + + + | | 2023-06-05 | [facility] | NEGATIVE | (missing) | (missing) | | (unavailable | [facility]16:07 [facility] | | | | + + + + + + + + + | Result panel 156 | + + + + + +-------+ + + | | 2023-06-05 | [facility] | 1.0 | (missing) | (missing) | | (unavailable | [facility]16:07 [facility] | | | | + + + +-------+ + + + + | Result panel 157 | + + + + + + + + + | | 2023-06-05 | [facility] | POSITIVE | (missing) | (missing) | | (unavailable | [facility]:16:07 [facility] | | | | + + + + + + + + + | Result panel 158 | + + + + + + + + + | | 2023-06-05 | [facility] | NEGATIVE | (missing) | (missing) | | (unavailable | [facility]16:07 [facility] | | | | + + + + + + + + + | Result panel 159 | + + + + + +-------+ + + | | 2023-06-05 | [facility] | 0-1 | (missing) | (missing) | | (unavailable | [facility]16:07 [facility] | | | | + + + +-------+ + + + + | Result panel 160 | + + + + + +-------+ + + | | 2023-06-05 | [facility] | 4-6 | (missing) | (missing) | | (unavailable | [facility]16:07 [facility] | | | | + + + +-------+ + + + + | Result panel 161 | + + + + + + + + + | | 2023-06-05 | [facility] | SQUAMOUS 2+ | (missing) | (missing) | | (unavailable | 16:16:07 | [facility] | | | | + + + + + + + + + | Result panel 162 | + + + + + + + + + | | 2023-06-05 | [facility] | | (missing) | (missing) | | (unavailable | 16[facility]16:07 | [facility] | 1+ | | | + + + + + + + + + | Result panel 163 | + + + + + + + + + | | 2023-06-05 | [facility] | NONE SEEN | (missing) | (missing) | | (unavailable | 16:16:07 | [facility] | | | | + + + + + + + + + | Result panel 164 | + + + + + + + + + | | 2023-06-05 | [facility] | POSITIVE | (missing) | (missing) | | (unavailable | [facility]:16:07 [facility] | | | | + + + + + + + + + | Result panel 165 | + + + + + +------+ + + | | 2023-06-05 | [facility] | 3+ | (missing) | (missing) | | (unavailable | [facility]16:07 [facility] | | | | + + + +------+ + + + + | Result panel 166 | + + + + + + + + + | | 2023-06-05 | [facility] | NONE SEEN | (missing) | (missing) | | (unavailable | [facility]16:07 [facility] | | | | + + + + + + + + + | Result panel 167 | + + + + + +------+ + + | | 2023-06-05 | [facility] | No | (missing) | (missing) | | (unavailable | [facility]16:07 [facility] | | | | + + + +------+ + + + + | Result panel 168 | + + + + + + + + + | | 2023-06-05 | [facility] | CLEAN CATCH | (missing) | (missing) | | (unavailable | [facility]:16:07 [facility] | | | | + + + + + + + + + | Result panel 169 | + + + + + +---------+ + + | | 2023-06-05 | [facility] | SMALL | (missing) | (missing) | | (unavailable | [facility]16:07 [facility] | | | | + + + +---------+ + + + + | Result panel 170 | + + + + + + + + + | | 2023-06-05 | [facility] | >=1.030 | (missing) | (missing) | | (unavailable | 16:16: | [facility] | | | | + + + + + + + + + | Result panel 171 | + + + + + + + + + | | 2023-06-05 | [facility] | TRACE-I | (missing) | (missing) | | (unavailable | 16:16: | [facility] | | | | + + + + + + + + + | Result panel 172 | + + + + + + + + + | | 2023-06-05 | [facility] | POSITIVE | (missing) | (missing) | | (unavailable | [facility]:16:07 [facility] | | | | + + + + + + + + + | Result panel 173 | + + + + + + + + + | | 2023-06-05 | [facility] | POSITIVE | (missing) | (missing) | | (unavailable | [facility]:16:07 [facility] | | | | + + + + + + + + + | Result panel 174 | + + + + + + + + + | | 2023-06-05 | [facility] | NEGATIVE | (missing) | (missing) | | (unavailable | [facility]16:07 [facility] | | | | + + + + + + + + + | Result panel 175 | + + + + + + + + + | | 2023-06-05 | [facility] | POSITIVE | (missing) | (missing) | | (unavailable | [facility]:16:07 [facility] | | | | + + + + + + + + + | Result panel 176 | + + + + + + + + + | | 2023-06-05 | [facility] | POSITIVE | (missing) | (missing) | | (unavailable | 16:16:07 [facility] | | | | + + + + + + + + + | Result panel 177 | + + + + + + + + + | | 2023-06-05 | [facility] | NEGATIVE | (missing) | (missing) | | (unavailable | [facility]16:07 [facility] | | | | + + + + + + + + + | Result panel 178 | + + + + + + + + + | | 2023-06-05 | [facility] | NEGATIVE | (missing) | (missing) | | (unavailable | 16:16:07 [facility] | | | | + + + + + + + + + | Result panel 179 | + + + + + + + + + | | 2023-06-05 | [facility] | NEGATIVE | (missing) | (missing) | | (unavailable | [facility]:16:07 [facility] | | | | + + + + + + + + + | Result panel 180 | + + + + + + + + + | | 2023-06-05 | [facility] | NEGATIVE | (missing) | (missing) | | (unavailable | 16:16:07 [facility] | | | | + + + + + + + + + | Result panel 181 | + + + + + + + + + | | 2023-06-05 | [facility] | POSITIVE | (missing) | (missing) | | (unavailable | [facility]:16:07 [facility] | | | | + + + + + + + + + | Result panel 182 | + + + + + +-------+ + + | | 2023-06-05 | [facility] | 6.0 | (missing) | (missing) | | (unavailable | [facility]16:07 [facility] | | | | + + + +-------+ + + + + | Result panel 183 | + + + + + + + + + | | 2023-06-05 | [facility] | NEGATIVE | (missing) | (missing) | | (unavailable | [facility]16:07 [facility] | | | | + + + + + + + + + | Result panel 184 | + + + + + + + + + | | 2023-06-05 | [facility] | POSITIVE | (missing) | (missing) | | (unavailable | 16:16:07 [facility] | | | | + + + + + + + + + | Result panel 185 | + + + + + + + + + | | 2023-06-05 | [facility] | NEGATIVE | (missing) | (missing) | | (unavailable | [facility]:16:07 [facility] | | | | + + + + + + + + + | Result panel 186 | + + + + + + + + + | | 2023-06-05 | [facility] | NEGATIVE | (missing) | (missing) | | (unavailable | [facility]:16:07 [facility] | | | | + + + + + + + + + | Result panel 187 | + + + + + +-------+ + + | | 2023-06-05 | [facility] | 1.0 | (missing) | (missing) | | (unavailable | [facility]16:07 [facility] | | | | + + + +-------+ + + + + | Result panel 188 | + + + + + + + + + | | 2023-06-05 | [facility] | POSITIVE | (missing) | (missing) | | (unavailable | [facility]:16:07 [facility] | | | | + + + + + + + + + | Result panel 189 | + + + + + + + + + | | 2023-06-05 | [facility] | NEGATIVE | (missing) | (missing) | | (unavailable | 16:16: | [facility] | | | | + + + + + + + + + | Result panel 190 | + + + + + +-------+ + + | | 2023-06-05 | [facility] | 0-1 | (missing) | (missing) | | (unavailable | [facility]16:07 [facility] | | | | + + + +-------+ + + + + | Result panel 191 | + + + + + +-------+ + + | | 2023-06-05 | [facility] | 4-6 | (missing) | (missing) | | (unavailable | [facility]16:07 [facility] | | | | + + + +-------+ + + + + | Result panel 192 | + + + + + + + + + | | 2023-06-05 | [facility] | SQUAMOUS 2+ | (missing) | (missing) | | (unavailable | [facility]:16:07 [facility] | | | | + + + + + + + + + | Result panel 193 | + + + + + + + + + | | 2023-06-05 | [facility] | | (missing) | (missing) | | (unavailable | 16[facility]16:07 | [facility] | | [facility] | 1+ | | | + + + + + + + + + | Result panel 194 | + + + + + + + + + | | 2023-06-05 | [facility] | NONE SEEN | (missing) | (missing) | | (unavailable | 16:16:07 [facility] | | | | + + + + + + + + + | Result panel 195 | + + + + + +------+ + + | | 2023-06-05 | [facility] | 3+ | (missing) | (missing) | | (unavailable | [facility]16:07 [facility] | | | | + + + +------+ + + + + | Result panel 196 | + + + + + + + + + | | 2023-06-05 | [facility] | NONE SEEN | (missing) | (missing) | | (unavailable | [facility]16:07 [facility] | | | | + + + + + + + + + | Result panel 197 | + + + + + +------+ + + | | 2023-06-05 | [facility] | No | (missing) | (missing) | | (unavailable | [facility]16:07 [facility] | | | | + + + +------+ + + + + | Result panel 198 | + + + + + + + + + | | 2023-06-05 | [facility] | CLEAN CATCH | (missing) | (missing) | | (unavailable | 16:16:07 [facility] | | | | + + + + + + + + + | Result panel 199 | + + + + + + + + + | | 2023-06-05 | [facility] | POSITIVE | (missing) | (missing) | | (unavailable | [facility]:16:07 [facility] | | | | + + + + + + + + + | Result panel 200 | + + + + + + + + + | | 2023-06-05 | [facility] | POSITIVE | (missing) | (missing) | | (unavailable | [facility]16:07 [facility] | | | | + + + + + + + + + | Result panel 201 | + + + + + + + + + | | 2023-06-05 | [facility] | NEGATIVE | (missing) | (missing) | | (unavailable | [facility]16:07 [facility] | | | | + + + + + + + + + | Result panel 202 | + + + + + + + + + | | 2023-06-05 | [facility] | POSITIVE | (missing) | (missing) | | (unavailable | [facility]:16:07 [facility] | | | | + + + + + + + + + | Result panel 203 | + + + + + + + + + | | 2023-06-05 | [facility] | POSITIVE | (missing) | (missing) | | (unavailable | [facility]:16:07 [facility] | | | | + + + + + + + + + | Result panel 204 | + + + + + + + + + | | 2023-06-05 | [facility] | NEGATIVE | (missing) | (missing) | | (unavailable | [facility]:16:07 [facility] | | | | + + + + + + + + + | Result panel 205 | + + + + + + + + + | | 2023-06-05 | [facility] | NEGATIVE | (missing) | (missing) | | (unavailable | [facility]16:07 [facility] | | | | + + + + + + + + + | Result panel 206 | + + + + + + + + + | | 2023-06-05 | [facility] | NEGATIVE | (missing) | (missing) | | (unavailable | [facility]:07 [facility] | | | | + + + + + + + + + | Result panel 207 | + + + + + + + + + | | 2023-06-05 | [facility] | NEGATIVE | (missing) | (missing) | | (unavailable | [facility]:07 [facility] | | | | + + + + + + + + + | Result panel 208 | + + + + + + + + + | | 2023-06-05 | [facility] | POSITIVE | (missing) | (missing) | | (unavailable | [facility]:07 [facility] | | | | + + + + + + + + + | Result panel 209 | + + + + + + + + + | | 2023-06-05 | [facility] | NEGATIVE | (missing) | (missing) | | (unavailable | [facility]16:07 [facility] | | | | + + + + + + + + + | Result panel 210 | + + + + + + + + + | | 2023-06-05 | [facility] | POSITIVE | (missing) | (missing) | | (unavailable | [facility]:07 [facility] | | | | + + + + + + + + + | Result panel 211 | + + + + + + + + + | | 2023-06-05 | [facility] | NEGATIVE | (missing) | (missing) | | (unavailable | [facility]:07 [facility] | | | | + + + + + + + + + | Result panel 212 | + + + + + + + + + | | 2023-06-05 | [facility] | YELLOW | (missing) | (missing) | | (unavailable | [facility]:07 [facility] | | | | + + + + + + + + + | Result panel 213 | + + + + + +---------+ + + | | 2023-06-05 | [facility] | CLEAR | (missing) | (missing) | | (unavailable | [facility]:07 [facility] | | | | + + + +---------+ + + + + | Result panel 214 | + + + + + + + + + | | 2023-06-05 | [facility] | NEGATIVE | (missing) | (missing) | | (unavailable | [facility]:07 [facility] | | | | + + + + + + + + + | Result panel 215 | + + + + + + + + + | | 2023-06-05 | [facility] | POSITIVE | (missing) | (missing) | | (unavailable | [facility]:07 [facility] | | | | + + + + + + + + + | Result panel 216 | + + + + + +---------+ + + | | 2023-06-05 | [facility] | SMALL | (missing) | (missing) | | (unavailable | [facility]16:07 [facility] | | | | + + + +---------+ + + + + | Result panel 217 | + + + + + + + + + | | 2023-06-05 | [facility] | >=1.030 | (missing) | (missing) | | (unavailable | [facility]16:07 [facility] | | | | + + + + + + + + + | Result panel 218 | + + + + + + + + + | | 2023-06-05 | [facility] | TRACE-I | (missing) | (missing) | | (unavailable | [facility]16:07 [facility] | | | | + + + + + + + + + | Result panel 219 | + + + + + +-------+ + + | | 2023-06-05 | [facility] | 6.0 | (missing) | (missing) | | (unavailable | [facility]16:07 [facility] | | | | + + + +-------+ + + + + | Result panel 220 | + + + + + + + + + | | 2023-06-05 | [facility] | NEGATIVE | (missing) | (missing) | | (unavailable | [facility]16:07 [facility] | | | | + + + + + + + + + | Result panel 221 | + + + + + +-------+ + + | | 2023-06-05 | [facility] | 1.0 | (missing) | (missing) | | (unavailable | [facility]16:07 [facility] | | | | + + + +-------+ + + + + | Result panel 222 | + + + + + + + + + | | 2023-06-05 | [facility] | POSITIVE | (missing) | (missing) | | (unavailable | [facility]16:07 [facility] | | | | + + + + + + + Social History No information. Vital Signs + [...] 110.01 | lb | + + + +---------+ | 2023-06-09 00:00 | BMI | 19.7 | kg/m2 | + + + +---------+ | 2023-06-09 00:00 | BP_diastolic | 80 | mmHg | + + + +---------+ | 2023-06-09 00:00 | BP_systolic | 109 | mmHg | + + + +---------+ | 2023-06-09 00:00 | heart_rate | 82 | /min | + + + +---------+ | 2023-06-09 00:00 | height_metric | 162.56 | cm | + + + +---------+ | 2023-06-09 00:00 | height_standard | 64 | in | + + + +---------+ | 2023-06-09 00:00 | o2_saturation | 100 | % | + + + +---------+ | 2023-06-09 00:00 | respiration_rate | 18 | /min | + + + +---------+ | 2023-06-09 00:00 | temperature_metric | 36.67 | C | | | | | | + + + +---------+ | 2023-06-09 00:00 | | 98 | F | | | temperature_standar | | | | | d | | | + + + +---------+ | 2023-06-09 00:00 | weight_metric | 52 | kg | + + + +---------+ | 2023-06-09 00:00 | weight_standard | 114.64 | lb | + + + +---------+"
--- OUTSIDE RECORDS SUMMARY | ~2023-06-12 | XMS | Continuity of Care Document ---
Demographics + + + | Address | [address] | | | [place] [address] | + + + | Preferred Language | Unknown | + + + | Marital Status | Never | + + + | Cheondoism Affiliation | Unknown | + + + | Race | or | + + + | Ethnic Group | Not or | + + + Author + + + | Author | [facility] | + + + | Organization | [facility] | + + + | Address | [address] | | | [place] [address] | + + + | Phone | | + + + Care Team Providers + + + + | Care [place] [employer] Name | Role | Phone | [...] | 2016-09-18 00:00 | MMR | [facility] | + + + + | 2016-06-08 00:00 | Tdap | [facility] | + + + + Medications + + + + | date | description | facility | + + + + | 2023-06-09 00:00 | OXYCODONE | [facility] | | | HCL/ACETAMINOPHEN | | + + + + | 2023-06-09 00:00 | DOCUSATE SODIUM | [facility] | + + + + | 2023-06-09 00:00 | MONTELUKAST SODIUM | [facility] | + + + + | 2023-06-09 00:00 | IBUPROFEN | [facility] | + + + + | 2023-06-09 00:00 | LORATADINE | [facility] | + + + + | 2023-06-09 00:00 | PAROXETINE HCL | [facility] | + + + + | 2023-06-09 00:00 | SERTRALINE HCL | [facility] | + + + + | 2023-06-09 00:00 | MIRTAZAPINE | [facility] | + + + + | 2016-10-19 00:00 | CEPHALEXIN | [facility] | + + + + | 2023-06-09 00:00 | ALPRAZOLAM | [facility] | + + + + | 2023-06-09 00:00 | ASCORBIC ACID | [facility] | + + + + | 2023-06-09 00:00 | GENTIAN ONEL | [facility] | + + + + | 2023-06-09 00:00 | NITROFURANTOIN MONOHYD | [facility] | | | MACROCR | | + + + + | 2023-06-09 00:00 | TRAMADOL HCL | [facility] | + + + + | 2023-06-09 00:00 | TRAZODONE HCL | [facility] | + + + + | 2013-07-31 00:00 | HYDROCODONE | [facility] | | | BIT/ACETAMINOPHEN | | + + + + | 2023-06-09 00:00 | CHOLECALCIFEROL (VITAMIN | [facility] | | | D3) | | + + + + | 2023-06-09 00:00 | HYDROMORPHONE HCL | [facility] | + + + + | 2023-06-09 00:00 | PROMETHAZINE HCL | [facility] | + + + + Problems + + + + | date | description | facility | + + + + | 2014-10-22 00:00 | Shoulder pain | [facility] | + + + + | 2014-10-22 00:00 | Calcific bursitis of | [facility] | | | shoulder | | + + + + | 2014-10-22 00:00 | Strain of shoulder | [facility] | + + + + | 2014-11-21 00:00 | Postoperative pain | [facility] | + + + + | 2014-11-21 00:00 | Postoperative abdominal | [facility] | | | pain | | + + + + | 2016-02-18 00:00 | Pelvic pain affecting | [facility] | | | | | + + + + | 2016-05-14 00:00 | Encounter for medical | [facility] | | | screening examination | | + + + + | 2016-10-19 00:00 | Mastitis | [facility] | + + + + | 2018-04-28 00:00 | Hypokalemia | [facility] | + + + + | 2018-04-28 00:00 | Chronic narcotic | [facility] | | | dependence | | + + + + | 2018-04-28 00:00 | Drug withdrawal | [facility] | + + + + | 2018-04-28 00:00 | Elevated liver function | [facility] | | | tests | | + + + + | 2019-07-05 00:00 | Syphilis | [facility] | + + + + | 2019-07-05 00:00 | Pharyngitis | [facility] | + + + + | 2020-05-29 00:00 | Abscess | [facility] | + + + + | 2020-05-29 00:00 | Cellulitis | [facility] | + + + + | 2023-06-05 11:36 | NICOTINE DEPENDENCE, | [facility] | | | UNSPECIFIED, UNCOMPLICATED | | + + + + | 2023-06-05 11:36 | OTHER PSYCHOACTIVE | [facility] | | | SUBSTANCE ABUSE, | | | | UNCOMPLICATED | | + + + + | 2023-06-05 11:36 | Delusional disorders | [facility] | + + + + | 2023-06-06 00:00 | Polysubstance abuse | [facility] | + + + + | 2023-06-06 00:00 | Delusions | [facility] | + + + + | 2023-06-08 00:00 | Headache | [facility] | + + + + | 2023-06-08 04:16 | NICOTINE DEPENDENCE, | [facility] | | | UNSPECIFIED, UNCOMPLICATED | | + + + + | 2023-06-09 00:00 | Substance abuse | [facility] | + + + + | 2023-06-09 00:00 | Urinary tract infection | [facility] | + + + + | [...] (missing) | | (unavailable | 12:35:07 | Jsoeph | | | | | ) | [...] (missing) | | (unavailable | 16:16:07 | Joesph | | | | | ) | [...]
[~2023-06-12 01:50] MED LIST changes: +MACROBID 100 M100 MG PO
--- OUTSIDE RECORDS SUMMARY | 2023-06-12 01:56 | XMS ---
PreManage Notification: MEENU BROOKS Security Armed Security Guard Events No recent Security Events currently on file CRITERIA MET - [facility] - 2 Visits in 30 Days CARE PROVIDERS -[place]- Dentist: Welcome Desk Agent [facility] PHONE: [phone] KELLIE BRAGG Physician House Shorer 07/06/2019-Current PHONE: Unknown Sergio has no Care Guidelines for this patient. Care History Medical/Surgical 07/06/2019 [facility] - PATIENT IS YELLOWHAWK ELIGIBLE, \T\middot;\T\nbsp; PLEASE REFER PATIENT TO [facility] FOR NON EMERGENT MEDICAL NEEDS. \T\middot;\T\nbsp; [facility] CAN SEE PATIENTS SAME DAY FOR APTS IF PATIENT CALLS FIRST THING IN THE MORNING. E.D. VISIT COUNT (12 MO.) 4 [facility] TOTAL 4 NOTE: Visits indicate total known visits. ED/UCC VISIT TRACKING (12 MO.) 06/12/2023 01:50 [facility] [place] TYPE: Emergency COMPLAINT: - ABD PAIN 06/09/2023 04:21 [facility] TYPE: Emergency COMPLAINT: - MEDICAL CLEARANCE DIAGNOSES: - Headache, unspecified - Nicotine dependence, unspecified, uncomplicated - Other psychoactive substance abuse, uncomplicated - Urinary tract infection, site not specified 06/08/2023 04:16 [facility] [place] TYPE: Emergency COMPLAINT: - SOMETHING GOING ON IN HER BRAIN DIAGNOSES: - Headache, unspecified - Nicotine dependence, unspecified, uncomplicated 06/05/2023 11:36 [facility] [place] TYPE: Emergency COMPLAINT: - MEDICAL CLEARANCE DIAGNOSES: - Delusional disorders - Nicotine dependence, unspecified, uncomplicated - Other psychoactive substance abuse, uncomplicated INPATIENT VISIT TRACKING (12 MO.) No inpatient visits to display in this time frame [email or web address]
[2023-06-12 02:29] VITALS: BP 110/75
== END 2023-06-12 02:30 | disposition home or self-care (01) ==
LOC: ED 01:50
DX: R10.9 Unspecified abdominal pain (principal); R51.9 Headache, unspecified; F17.200 Nicotine dependence, unspecified, uncomplicated
CPT/HCPCS: 81003; 84703; A9270

== ENCOUNTER 2025-01-08 07:34 | Emergency (ER) | payer OTHER ==
[~2025-01-08] VITALS: Ht 162.6 cm; Wt 62.6 kg
[2025-01-08] MEDS ORDERED: IBUPROFEN 400 MG TAB PO ONE (08:30)
[2025-01-08] MEDS ORDERED: ACETAMINOPHEN 325 MG TAB PO ONE (08:30)
[2025-01-08 08:55] VITALS: BP 107/76
== END 2025-01-08 08:55 | disposition home or self-care (01) ==
LOC: ED 07:34
DX: S63.502A Unspecified sprain of left wrist, initial encounter (principal); F17.200 Nicotine dependence, unspecified, uncomplicated; Z79.899 Other long term (current) drug therapy; W00.0XXA Fall on same level due to ice and snow, initial encounter
CPT/HCPCS: 73100; 73110; 99283; A9270